=== PATIENT | male | born 1955 | race Caucasian/White ===

== ENCOUNTER → 2018-05-22 09:02 | Outpatient (CLI) | payer OTHER, SELFPAY ==
[2018-05-22 10:00] LABS: Alanine Aminotransferase 34 IU/L (21-72); Albumin 4.5 g/dL (3.5-5.0); Albumin Globulin Ratio 1.7 (1.0-2.8); Alkaline Phosphatase 75 U/L (38-126); Aspartate Aminotransferase 31 IU/L (17-59); BUN Creatinine Ratio 14.2 (6-22); Bilirubin Total 0.8 mg/dL (0.2-1.3); Blood Urea Nitrogen 17 mg/dL (9-20); Calcium 9.8 mg/dL (8.4-10.2); Carbon Dioxide 27 mmol/L (22-32); Chloride 103 mmol/L (98-107); Cholesterol 171 mg/dL (140-199); Estimated Glomerular Filt Rate > 60.0 mL/min (>60); Globulin 2.7 g/dL (1.7-4.1); Glucose 100 mg/dL (80-110); HDL Cholesterol 55 mg/dL (40-60); HEMOLYSIS < 15 (0-50); LDL Cholesterol Calculated 97 mg/dL (<100); Potassium 4.1 mmol/L (3.4-5.1); Sodium 140 mmol/L (137-145); Total Protein 7.2 g/dL (6.3-8.2); Triglycerides 93 mg/dL (35-150)
[2018-05-22 10:30] LABS: Prostate Specific Antigen Scrn 0.771 ng/mL (0.1-4.0)
== END ==
PROVIDERS: PCP Internal Medicine; Visit Provider Internal Medicine
DX: I10 Essential (primary) hypertension (principal); Z12.5 Encounter for screening for malignant neoplasm of prostate; Z13.6 Encounter for screening for cardiovascular disorders
CPT/HCPCS: 36415; 80053; 80061; G0103

== ENCOUNTER → 2020-01-31 15:01 | Outpatient (CLI) | payer MEDICARE, SELFPAY ==
[2020-01-31 17:15] LABS: Alanine Aminotransferase 26 IU/L (<50); Albumin 4.5 g/dL (3.5-5.0); Albumin Globulin Ratio 1.6 (1.0-2.8); Alkaline Phosphatase 74 U/L (38-126); Aspartate Aminotransferase 39 IU/L (17-59); Bilirubin Total 0.4 mg/dL (0.2-1.3); Blood Urea Nitrogen 23 mg/dL (9-20); Calcium 9.7 mg/dL (8.4-10.2); Carbon Dioxide 28 mmol/L (22-32); Chloride 105 mmol/L (98-107); Estimated Glomerular Filt Rate > 60.0 mL/min (>60); Globulin 2.8 g/dL (1.7-4.1); Glucose 106 mg/dL (80-110); HEMOLYSIS < 15 (0-50); Potassium 3.9 mmol/L (3.4-5.1); Sodium 140 mmol/L (137-145); Total Protein 7.3 g/dL (6.3-8.2)
[2020-01-31 17:44] LABS: Prostate Specific Antigen Scrn 0.929 ng/mL (0.1-4.0)
== END ==
PROVIDERS: PCP Internal Medicine; Referring Provider Internal Medicine; Visit Provider Internal Medicine
DX: I10 Essential (primary) hypertension (principal); Z86.010 Personal history of colon polyps; Z12.5 Encounter for screening for malignant neoplasm of prostate
CPT/HCPCS: 36415; 80053; G0103

== ENCOUNTER → 2024-08-24 12:41 | Outpatient (CLI) | payer MEDICARE, SELFPAY ==
--- NOTE | 2024-08-24 12:43 | DI.US.S_ITS ---
PROCEDURE: US RENAL COMPLETE INDICATIONS: CKD3A TECHNIQUE: Real-time scanning was performed of the kidneys and bladder, with image documentation. COMPARISON: None. FINDINGS: Kidneys: The right kidney measures 10.7 cm. Essentially normal parenchymal echotexture. There is mild right pelviectasis which resolved postvoid. The left kidney measures 10.3 cm. There is also essentially normal echotexture. No hydronephrosis or cortical thinning. Bladder: Pre-void bladder volume is 306 mL. Post-void residual is 165 mL. Pre-void images demonstrate no intraluminal masses or stones. On pre-void images, bilateral ureteral jets are noted with color Doppler interrogation. (Of note, ureteral jets may not be detectable in up to 25% of cases due to insufficient differences in specific gravity between ureteral and bladder urine). There is a diverticulum on the right measuring 2.65 x 1.65 cm. Miscellaneous: No free pelvic fluid. IMPRESSION: 1. Borderline normal size of the kidneys, no significant cortical thinning or abnormal echogenicity. There is mild right pelviectasis which resolves postvoid. 2. Large postvoid bladder residual. 3. Bladder diverticulum on the right measuring up to 2.65 cm. Dictated by: Reno Lindsey M.D. on 08/24/2024 at 18:42 Approved by: Reno Lindsey M.D. on 08/24/2024 at 18:47
--- NOTE | 2024-08-24 12:51 | DI.US.S_ITS ---
PROCEDURE: US ABD AORTA ANEURYSM SCREEN INDICATIONS: HX SMOKING/CKD 3A TECHNIQUE: Real-time scanning was performed of the aorta and proximal common iliac arteries, with image documentation. COMPARISON: None. FINDINGS: Aorta: Abdominal aorta is normal in caliber throughout its length. Proximal aorta 2.3 cm diameter. Mid aorta 2.1 cm. Distal aorta 2.0 cm mild posterior wall calcifications. Iliacs: Proximal common iliac arteries are normal in caliber, 1.2 cm right, 1.3 cm left diameter. IMPRESSION: No ultrasound evidence of abdominal aortic aneurysm. Mild vascular calcifications distal aorta. Dictated by: Anthony Oneill M.D. on 08/24/2024 at 14:50 Approved by: Anthony Oneill M.D. on 08/24/2024 at 14:55
== END ==
LOC: US 12:42
PROVIDERS: PCP Family Medicine; Referring Provider Internal Medicine; Visit Provider Family Medicine
DX: N18.31 Chronic kidney disease, stage 3a (principal); N13.30 Unspecified hydronephrosis; R33.9 Retention of urine, unspecified; Z87.891 Personal history of nicotine dependence
CPT/HCPCS: 76706; 76770

== ENCOUNTER 2025-03-17 11:06 | Day surgery (SDC) | payer MEDICARE, SELFPAY ==
[2025-03-07 13:49] VITALS: BMI 28.5
--- NOTE | 2025-03-17 | PATH_ITS ---
[facility] Accession Number: [id number] No. of containers..05 Tissue . 01 Material submitted: . PART A: colon - CECAL POLYPS PART B: colon - CECAL LESION PART C: colon - COLON, ASCENDING POLYP PART D: colon - ASCENDING POLYP @ 70 PART E: rectum - RECTAL POLYP . 01 Diagnosis: A. CECAL POLYPS: Tubular adenomas. . B. CECAL LESION, BIOPSY: Colonic mucosa with prominent benign lymphoid aggregate. Negative for serrated lesion, dysplasia or malignancy. . C. ASCENDING COLON POLYP: Tubular adenoma. . D. ASCENDING COLON POLYP at 70 cm: Tubular adenoma. . E. RECTAL POLYP: Tubular adenoma. MRV 03/22/2025 1550 Local . 01 Electronically signed: . Dima Sin MD, PhD, Pathologist NPI- [id number] . 01 Gross description: . A. Received in formalin with two patient identifiers, and cecal polyps are three, 0.3-0.7 cm felipe tissue fragments, entirely submitted in A1. B. Received in formalin with two patient identifiers, and cecal lesion is one, 0.3 cm felipe tissue fragment, entirely submitted in B1. C. Received in formalin with two patient identifiers, and ascending polyp is one, 0.4 cm felipe tissue fragment, entirely submitted in C1. D. Received in formalin with two patient identifiers, and ascending polyp at 70 is one, 0.5 cm felipe tissue fragment, entirely submitted in D1. E. Received in formalin with two patient identifiers, and rectal polyp is one, 0.8 cm felipe tissue fragment, bisected and entirely submitted in E1. ([id number]) /MRV 03/22/2025 1548 Local . 01 Pathologist provided ICD-10: D12.6, D12.8 . 01 CPT . 408030, 276534, 503299, 615669, 564294 Specimen Comment: A courtesy copy of this report has been sent to [facility] Pathology Performed at: [address] [id number] MD Sandip Chaparro MD Phone: [phone]
--- NOTE | 2025-03-17 06:35 | PM.HP.IH.1 ---
History of Present Illness History of Present Illness Date Patient Seen: 03/17/25 Chief complaint: Screening Colonoscopy Narrative: Presents for screening colonoscopy today. [facility] Medical History (Updated 03/17/25 @ 06:36 by Vlad Snyder MD) Adenomatous polyp CKD (chronic kidney disease), stage III History of adenomatous polyp of colon (06/02/15) Attention deficit disorder (01/11/11) Essential hypertension (10/29/10) Family History Father Alzheimer disease Skin cancer Mother Dementia Skin cancer Sister Skin cancer Social History Smoking Status: Former smoker Meds Home Medications and Allergies Home Medications ?Medication ?Instructions ?Recorded ?Confirmed ?Type hydrochlorothiazide 25 mg tablet 25 mg PO DAILY #90 tabs 03/12/21 Rx lisinopril 40 mg tablet 40 mg PO DAILY #90 tabs 03/12/21 Rx sodium,potassium,mag sulfates 17.5 See Rx Instructions PO .COMPLEX 02/14/25 Rx gram-3.13 gram-1.6 gram oral soln #354 mL (Suprep Bowel Prep Kit) Allergies Allergy/AdvReac Type Severity Reaction Status Date / Time No Known Drug Allergies Allergy Verified 01/31/20 14:33 Exam Narrative Exam Narrative: Const General: healthy appearing, comfortable and no acute distress Orientation: alert and oriented x3 HENMT Ears: hearing grossly normal bilaterally Eyes Visual Barlow: normal visual barlow by confrontation Conjunctivae: conjunctivae normal Sclera: sclerae normal EOM: EOM intact bilaterally Resp Effort & Inspection: normal respiratory effort and able to speak in complete sentences Cardio Rate: regular rate GI Palpation: soft (NT) Extrem General: no pedal edema and no calf tenderness Assessment & Plan Assessment and plan (1) Encounter for screening colonoscopy: Status: Acute Plan Plan colonoscopy, possible biopsy. The risks, benefits and options regarding the procedure were explained to the patient in detail. Risk discussion included but not limited to: bleeding, perforation, unable to reach cecum, missed lesion. The patient was encouraged to ask questions and they were answered to their satisfaction. The patient understands and is agreeable to proceed. Time-Based Coding :: [TOTAL MINUTES] spent with patient and on the chart (including review of chart, obtaining history, exam, reviewing outside data, placing orders, documenting exam and treatment plan, and counseling patient) on [DATE]. PROFEE Insulation Sprayer Document charge(s): Yes Charge Codes Inpatient/observation care including admit and discharge same day: [id number]
[2025-03-17 11:26] VITALS: BP 172/97; PULSE 82; RESP 12; TEMP 36.3; O2SAT 98
[2025-03-17] MEDS: LACTATED RINGERS 1,000 ML 42 ML IV (11:38)
--- NOTE | 2025-03-17 14:08 | PM.OP.COLON ---
Operative Date/Time/Diagnoses Date of procedure: 03/17/25 Time of procedure: 14:40 Pre-op diagnosis: Screening colonoscopy Post-op diagnosis: same (polyps) Procedure & Clinicians Study performed: Screening colonoscopy with polypectomy Same procedure(s) as scheduled: Yes Indications: 69yo M, screening colonoscopy Surgeon: Vlad Snyder Anesthesia Type: MAC +/- Procedure Notes SCOAP/Timeout: Performed Procedure in detail: Colonoscopy Patient placed in left lateral recumbent position. Time out was performed. Procedural sedation was administered by anesthesia. Examination began with a thorough inspection of the perianal area. There was no evidence of fissures, fistulae, external hemorrhoids or cutaneous malignancy. The colonoscope was then placed into the rectum and the lumen was insufflated with carbon dioxide. The scope was carefully advanced forward. Ultimately the cecum was intubated and confirmed by identification of the ileocecal valve, the appendiceal orifice and the confluence of the taenia. The scope was then slowly withdrawn examining the colon thoroughly in all directions. In the rectum, retroflexion of the scope was performed for inspection of the distal rectum and anal canal. ?Significant colonoscopy findings: ?1. Quality of the preparation-good, [place] 2-3, improved with irrigation/suction ?2. Multiple (5) polyps: All polyps removed with cold snare and retrieved for pathology: 3 polyps in cecum and ascending colon, adenomatous, benign appearing, 5mm 1 sessile polyp 3mm, serrated appearance, benign appearing in cecum 1 dominant polyp 1.5cm, pedunculated in rectum, 5cm from anal verge, removed with cold snare and retrieved 3. Recommend 3 year colonoscopy interval due to size and number of polyps Scope withdrawal time: 14 minutes Findings: polyp(s) Specimen(s): other (polyps) Estimated Blood Loss: 5 Complications: none Impression: Multiple colon polyps Post-procedure Recommendations: Colonoscopy in 3 years Plan for aftercare: PACU then home Follow up: as needed Disposition: PACU
[2025-03-17 14:41] VITALS: BP 121/71; PULSE 68; RESP 16; TEMP 36.2; O2SAT 99
[2025-03-17 14:47] VITALS: BP 126/67; PULSE 65; RESP 16; TEMP 36.2; O2SAT 99
[2025-03-17 14:52] VITALS: BP 134/76; PULSE 67; RESP 16; TEMP 36.2; O2SAT 99
[2025-03-17 15:05] VITALS: BP 143/76; PULSE 62; RESP 16; TEMP 36.2; O2SAT 99
== END 2025-03-17 15:11 | disposition home or self-care (01) ==
PROVIDERS: PCP Family Medicine; Referring Provider Surgery; Visit Provider Surgery
PROC: 0DJD8ZZ Inspection of Lower Intestinal Tract, Via Natural or Artificial Opening Endoscopic (ICD-10-PCS; CPT 45378; principal; 2025-03-17 12:45)
DX: Z12.11 Encounter for screening for malignant neoplasm of colon (principal); Z87.891 Personal history of nicotine dependence; D12.0 Benign neoplasm of cecum; D12.2 Benign neoplasm of ascending colon; D12.8 Benign neoplasm of rectum
CPT/HCPCS: 45385; J2250; J2704; J7120